=== PATIENT | female | born 1980 | race Caucasian/White ===

== ENCOUNTER → 2018-11-12 16:34 | Outpatient (CLI) | payer OTHER, SELFPAY ==
--- NOTE | 2018-11-12 16:37 | DI.RAD.S_ITS ---
PROCEDURE: XR ANKLE RT MIN 3V INDICATIONS: r ankle injury TECHNIQUE: 3 views of the ankle were acquired. COMPARISON: None. FINDINGS: Bones: There is a small bony fragment adjacent to the distal fibula, and a small bony fragment adjacent to the anterior aspect of the tibiotalar joint. Ankle mortise is normally aligned. No suspicious bony lesions. Soft tissues: No tibiotalar joint effusion. Achilles tendon appears normal. IMPRESSION: 1. Small bony fragment as described above, which could indicate small fracture fragments. Dictated by: Forrest Betancourt M.D. on 11/12/2018 at 16:48 Approved by: Forrest Betancourt M.D. on 11/12/2018 at 16:49
== END ==
PROVIDERS: PCP Nurse Practitioner Family; Visit Provider Physician Assistant
DX: M25.571 Pain in right ankle and joints of right foot (principal)
CPT/HCPCS: 73610

== ENCOUNTER → 2021-02-14 10:16 | Outpatient (CLI) | payer OTHER, SELFPAY ==
--- NOTE | 2021-02-14 10:17 | DI.MG.S_ITS ---
BILATERAL DIGITAL SCREENING MAMMOGRAM 3D/2D WITH CAD: 02/14/2021 CLINICAL: Routine screening. Baseline exam. No prior exams were available for comparison. The tissue of both breasts is heterogeneously dense. This may lower the sensitivity of mammography. Current study was also evaluated with a Computer Aided Detection (CAD) system. There is an oval equal density focal asymmetry in the right axillary tail. There also is an oval equal density focal asymmetry in the right breast at 11 o'clock middle depth. Additionally, there is an oval equal density asymmetry in the right breast posterior depth superior region seen on the mediolateral oblique view only. No other significant masses, calcifications, or other findings are seen in either breast. IMPRESSION: INCOMPLETE: NEEDS ADDITIONAL IMAGING EVALUATION The oval equal density focal asymmetry in the right axillary tail is indeterminate. Additional views with possible ultrasound are recommended. The oval equal density focal asymmetry in the right breast at 11 o'clock middle depth is indeterminate. Additional views with possible ultrasound are recommended. The oval equal density asymmetry in the right breast posterior depth superior region seen on the mediolateral oblique view only is indeterminate. Additional views with possible ultrasound are recommended. This exam was interpreted at Station ID: [id number]. NOTE: For mammograms, a report in lay terms will be sent to the patient. Approximately 15% of breast malignancies will not be visualized mammographically. In the management of a palpable breast mass, a negative mammogram must not discourage biopsy of a clinically suspicious lesion. Electronically Signed By: Roberto hill/fracisco:02/14/2021 13:03:45 letter sent: Additional Imaging Needed ACR BI-RADS Category 0: Incomplete [id number]
== END ==
PROVIDERS: PCP Student in an Organized Health Care Education/Training Program; Referring Provider Obstetrics & Gynecology; Visit Provider Obstetrics & Gynecology
DX: Z12.31 Encounter for screening mammogram for malignant neoplasm of breast (principal); N64.89 Other specified disorders of breast
CPT/HCPCS: 77063; 77067

== ENCOUNTER → 2021-03-02 08:34 | Outpatient (CLI) | payer OTHER, SELFPAY ==
--- NOTE | 2021-03-02 | DI.MG.S_ITS ---
UNILATERAL RIGHT DIGITAL DIAGNOSTIC MAMMOGRAM 3D/2D WITH ADDITIONAL VIEWS: 03/02/2021 CLINICAL: Additional evaluation requested from prior study. Comparison is made to exam dated: 02/14/2021 [facility]. The tissue of right breast is heterogeneously dense. This may lower the sensitivity of mammography. There is a 0.8 cm x 0.5 cm oval focal asymmetry with an indistinct margin in the right breast at 11 o'clock middle depth 7 cm from the nipple. This is seen in additional views. The benign oval equal density focal asymmetry in the right axillary tail is no longer seen. This is not seen in additional views. The benign oval equal density asymmetry in the right breast posterior depth superior region seen on the mediolateral oblique view only is no longer seen. No other significant masses or calcifications are seen in the breast. IMPRESSION: INCOMPLETE: NEEDS ADDITIONAL IMAGING EVALUATION The 0.8 cm x 0.5 cm oval focal asymmetry in the right breast at 11 o'clock middle depth is indeterminate. An ultrasound is recommended. This exam was interpreted at Station ID: [id number]. NOTE: For mammograms, a report in lay terms will be sent to the patient. Approximately 15% of breast malignancies will not be visualized mammographically. In the management of a palpable breast mass, a negative mammogram must not discourage biopsy of a clinically suspicious lesion. Electronically Signed By: Kirill Vazquez acr/:03/02/2021 09:15:19 letter sent: Need Ultrasound ACR BI-RADS Category 0: Incomplete [id number]
--- NOTE | 2021-03-02 08:35 | DI.US.S_ITS ---
ULTRASOUND OF RIGHT BREAST: 03/02/2021 CLINICAL: Patient returns today to evaluate a focal asymmetry in the right breast. Comparison is made to exams dated: 03/02/2021 mammogram and 02/14/2021 mammogram - [facility]. Color flow and Doppler ultrasound of the right breast were performed. There is a benign 0.5 cm x 0.3 cm x 0.7 cm simple cyst with a septated internal wall in the right breast at 11 o'clock posterior depth 7 cm from the nipple. This abnormality is decreased in size and correlates with mammography findings. IMPRESSION: BENIGN There is no sonographic evidence of malignancy. The 0.5 cm x 0.3 cm x 0.7 cm simple cyst in the right breast is consistent with a simple cyst and is benign. Return to annual mammogram screening schedule is recommended. This exam was interpreted at Station ID: [id number]. Electronically Signed By: Kirill Vazquez acr/:03/02/2021 10:05:27 letter sent: Normal Exam Ultrasound BI-RADS: 2 Benign
== END ==
PROVIDERS: PCP Student in an Organized Health Care Education/Training Program; Referring Provider Obstetrics & Gynecology; Visit Provider Obstetrics & Gynecology
DX: R92.8 Other abnormal and inconclusive findings on diagnostic imaging of breast (principal); N60.01 Solitary cyst of right breast
CPT/HCPCS: 76642; 77065; G0279